=== PATIENT | female | born 1930 | race Caucasian/White ===

== ENCOUNTER 2016-12-30 10:00 | Outpatient (RCR) | payer MEDICARE | END 2016-12-30 10:44 | disposition home or self-care (01) | PROVIDERS: ATTEND Physician Assistant Medical | DX: M17.11 Unilateral primary osteoarthritis, right knee (principal); M54.41 Lumbago with sciatica, right side ==

== ENCOUNTER 2017-05-18 11:30 | Outpatient (RCR) | payer MEDICARE | END 2017-05-20 | disposition home or self-care (01) | PROVIDERS: ATTEND Orthopaedic Surgery | DX: Z47.1 Aftercare following joint replacement surgery (principal); Z96.651 Presence of right artificial knee joint ==

== ENCOUNTER 2017-06-07 09:30 | Outpatient (RCR) | payer MEDICARE | END 2017-06-07 11:33 | disposition home or self-care (01) | PROVIDERS: ATTEND Orthopaedic Surgery | DX: Z47.1 Aftercare following joint replacement surgery (principal); Z96.651 Presence of right artificial knee joint ==

== ENCOUNTER → 2017-08-03 | Outpatient (CLI) | payer MEDICARE ==
--- NOTE | 2017-08-04 09:07 | Diagnostic Imaging Report ---
Bilateral screening mammogram 2D views with tomosynthesis The current study was also evaluated with a Computer Aided Detection (CAD) system. Indication: Screening. No current complaints stated on the questionnaire. COMPARISON: 06/22/16. FINDINGS: The breasts are composed of scattered fibroglandular densities. Occasional benign-appearing calcifications are seen. Allowing for technique and positional differences, no suspicious change is seen. IMPRESSION: No significant change. ACR BI-RADS Category 2: Benign findings. Result letter will be mailed to the patient. Note: At least 10% of breast cancer is not imaged by mammography. Dictated by: Dictated on workstation # [id number]
== END ==
LOC: RAD 09:51
PROVIDERS: ATTEND Family Medicine
DX: Z12.31 Encounter for screening mammogram for malignant neoplasm of breast (principal)

== ENCOUNTER → 2018-10-16 | Outpatient (CLI) | payer MEDICARE ==
--- NOTE | 2018-10-16 10:55 | Diagnostic Imaging Report ---
Indication: Back pain. 3 views were obtained. Findings: There has been previous T12 kyphoplasty. There are age-indeterminate compression fractures of T11, L1, L3 and L4. There is no spondylolysis or spondylolisthesis. There is lower lumbar hypertrophic degenerative facet disease. Impression: Multiple age-indeterminate compression fractures. There is high clinical concern these may be acute. Further evaluation with MRI should be considered as they would likely be amenable to kyphoplasty Osteopenia and diffuse lumbar spondylosis and lower lumbar hypertrophic degenerative facet disease. Dictated by: Dictated on workstation # [id number]
--- NOTE | 2018-10-16 10:57 | Diagnostic Imaging Report ---
Indication: Tuberculosis exposure. Findings: There has been a T12 kyphoplasty. There is a fracture of T11 and T7 age of which is indeterminate. There is moderate accentuation of the normal thoracic kyphosis. Difficult to exclude additional thoracic compression fracture due to the degree of osteopenia. Impression: Osteopenia and diffuse thoracic spondylosis with several age indeterminate fractures as described. Recommend clinical correlation, if warranted followup with MRI Dictated by: Dictated on workstation # [id number]
== END ==
LOC: RAD 10:13
PROVIDERS: ATTEND Family Medicine
DX: S22.080A Wedge compression fracture of T11-T12 vertebra, initial encounter for closed fracture (principal); S32.010A Wedge compression fracture of first lumbar vertebra, initial encounter for closed fracture; S32.030A Wedge compression fracture of third lumbar vertebra, initial encounter for closed fracture; S32.040A Wedge compression fracture of fourth lumbar vertebra, initial encounter for closed fracture; S22.060A Wedge compression fracture of T7-T8 vertebra, initial encounter for closed fracture; M85.88 Other specified disorders of bone density and structure, other site; M47.816 Spondylosis without myelopathy or radiculopathy, lumbar region; M47.814 Spondylosis without myelopathy or radiculopathy, thoracic region
CPT/HCPCS: 72072; 72100